=== PATIENT | female | born 1980 | race Caucasian/White ===

== ENCOUNTER 2018-04-07 16:00 | Emergency (ER) | payer BC ==
[2018-04-07 16:53] VITALS: BP 110/71
[2018-04-07] MEDS ORDERED: Albuterol 2.5 MG/3 ML NEB.SOL* (0.083%) INH ONE (17:27)
--- NOTE | 2018-04-07 17:29 | UC ---
Shortness of Breath HPI - HPI Summary HPI Summary: 38 y/o with asthma c/o increasd SOB, worse with activity, similar to prior episodes in the past where she required oral steroids. + rib apin from coughing, feels congested deep in lungs, recent ABX for dental abscesss about 10 days ago, no further dental pain. + tob- 1 cig/ day. on albuerol, neb at home, + flovent. worse with lyging down. + wheezing, no fever, + chills. VSS. h/o steroid PO making depression worse. - History of Current Complaint Chief Complaint: UCRespiratory Stated Complaint: URI Hx Obtained From: Patient Hx Last Menstrual Period: 03/27/18 ?: No Onset/Duration: Sudden Onset, Lasting Days Current Severity: Moderate Dyspnea At: Rest Aggrevating Factors: Movement Alleviating Factors: Bronchodilators, Upright Position Associated Signs & Symptoms: Positive: Cough (Nonproductive), Wheezing - Allergy/Home Medications Allergies/Adverse Reactions: Allergies Allergy/AdvReac Type Severity Reaction Status Date / Time Environmental Allergies Allergy Congestion Uncoded 04/07/18 16:53 Home Medications: Home Medications Emtricitabine/Tenofovir (Tdf) [Truvada 200 mg-300 mg Tablet] 1 tab PO DAILY WITH MEAL 04/07/18 [History Confirmed 04/07/18] PMH/Surg Hx/FS Hx/Imm Hx Previously Healthy: No - asthma - Surgical History Surgical History: Yes Surgery Procedure, Year, and Place: knee surgery at age 15, back surgery 2010 - Family History Known Family History: Positive: None - Social History Alcohol Use: Weekly Alcohol Amount: Hasnt drank alcohol since she has been sick Substance Use Type: Marijuana Substance Use Comment - Amount & Last Used: occassional Smoking Status (MU): Light Every Day Tobacco Smoker Type: Cigarettes Amount Used/How Often: 1 cig per month Have You Smoked in the Last Year: Yes When Did the Patient Quit Smoking/Using Tobacco: 15 years Review of Systems Constitutional: Chills, Fatigue Respiratory: Shortness Of Breath, Cough Is Patient Immunocompromised?: No All Other Systems Reviewed And Are Negative: Yes Physical Exam Triage Information Reviewed: Yes Appearance: No Pain Distress, Well-Nourished, Ill-Appearing Vital Signs: Initial Vital Signs Temp 98.5 F 04/07/18 16:49 Pulse 85 04/07/18 16:49 Resp 22 04/07/18 16:49 BP 110/71 04/07/18 16:49 Pulse Ox 98 04/07/18 16:49 Vital Signs Reviewed: Yes Eyes: Positive: Conjunctiva Clear ENT: Positive: Pharynx normal, TMs normal Neck: Positive: Supple, Nontender, No Lymphadenopathy Respiratory: Positive: Chest non-tender, No respiratory distress, No accessory muscle use, Wheezing - b/l lower lobes. Negative: Respiratory distress, Decreased breath sounds Cardiovascular: Positive: RRR Skin Exam: Normal - worse with expiration b/l LL Shortness of Breath Dx - Course Course Of Treatment: discussed wtih Dr. Fraser, will see patient in AM, oral steroids given with patient confirmation family/ SO, friends good support group and aware of situation. Duoneb given, + improvement - Differential Dx/Diagnosis Differential Diagnosis/HQI/PQRI: Asthma, Bronchitis Provider Diagnoses: asthma exaccerbation Discharge - Sign-Out/Discharge Documenting (check all that apply): Patient Departure All imaging exams completed and their final reports reviewed: Yes - Discharge Plan Condition: Good Disposition: HOME Prescriptions: Albuterol/Ipratropium NEB.JIM* [Duoneb (Albuterol 2.5 MG/Ipratropium 0.5 MG)] 1 neb INH Q4H PRN #30 neb.soln PRN Reason: shortness of breath levoFLOXacin [Levofloxacin] 750 mg PO DAILY #7 tablet methylPREDNISolone [Medrol Dosepak 4 MG*] 4 mg PO .SEE MARISELA INSTRUCTION #1 tab.ds.pk Spacer/Holding Chamber (NF) [Easivent CHAMBER (NF)] 1 inh INH Q4HR #1 device Patient Education Materials: Asthma (ED) Forms: *Work Release Referrals: Manuel Gutierrez MD [Primary Care Provider] - Lindsay Fraser MD [Medical Doctor] - (Discussed care with Dr. Fraser, will see you tomorrow if no improvement ) Additional Instructions: - Duoneb every 4 hours as needed for breathing - Steroids as directed - antibiotics as directed - GO to ER with worsening shortness of breath, lightheadedness, thoughts of hurting yourself or others - Billing Disposition and Condition Condition: GOOD Disposition: Home - Attestation Statements Provider Attestation: I was available for consult. This patient was seen by the MATTIE. The patient was not presented to, seen by, or examined by me. -[place]
[2018-04-07] MEDS ORDERED: Albuterol/Ipratropium NEB.SOL* Albuterol 2.5 MG/Ipratropium 0.5 MG 3 ML INH ONE (17:50)
--- NOTE | 2018-04-07 18:06 | RAD ---
INDICATION: Cough and shortness of breath x3 weeks COMPARISON: Most recent comparison chest x-rays dated April 09, 2014 TECHNIQUE: PA and lateral views of the chest were obtained. FINDINGS: The heart and mediastinum are normal in size and contour. The lungs are grossly clear. There is no evidence of large pleural effusion. Visualized bones are normal for the patient's age. There is no radiographic evidence of free air beneath the diaphragm IMPRESSION: No radiographic evidence of acute cardiopulmonary disease.
== END 2018-04-07 18:26 | disposition home or self-care (01) ==
LOC: UCEAST 16:00
DX: J45.901 Unspecified asthma with (acute) exacerbation (principal); F17.210 Nicotine dependence, cigarettes, uncomplicated
CPT/HCPCS: 71046; 99212; A9270-GY; G0463